=== PATIENT | female | born 1975 | race Caucasian/White ===

== ENCOUNTER → 2018-06-17 06:57 | Outpatient (CLI) | payer OTHER, SELFPAY ==
--- NOTE | 2018-06-17 07:00 | BI_ITS ---
MAMMOGRAPHY - BILATERAL SCREENING REASON FOR EXAM: Female, 42 years old. Routine annual screening examination. PERTINENT HISTORY: Grandmother with breast cancer. TECHNIQUE: Digital bilateral breast delroy (3D mammographic acquisition) in the CC and MLO projections. 2-D mediolateral oblique (MLO) and craniocaudad (CC) views of both breasts were obtained. CAD: Full Field Digital Mammography with Computer Added Detection was performed. COMPARISON: Comparison is made with prior examination dated April 05, 2015 and August 25, 2013. FINDINGS: Breast Composition: The breasts are extremely dense, which lowers the sensitivity of mammography. There are no dominant masses or suspicious calcifications. No other significant abnormalities are identified. There has been no significant change since the prior study. BI/SCREENING MAMM (CAD), BILAT IMPRESSION: Stable bilateral screening mammogram. Yearly follow-up mammogram recommended. (A) ASSESSMENT CATEGORY: BIRADS Category 1: Negative. A letter regarding these results will be sent to the patient by the facility within 30 days. Approximately 10% of breast cancers are not detected by mammography. A normal mammogram should not delay biopsy of a clinically suspicious abnormality. [id number] Electronically Signed: Ted Montemayor MD at 12:30 EDT Tel [phone], Service support ,
== END ==
PROVIDERS: Family Provider Family Medicine; PCP Family Medicine; Visit Provider Obstetrics & Gynecology
DX: Z12.31 Encounter for screening mammogram for malignant neoplasm of breast (principal)
CPT/HCPCS: 77063; 77067

== ENCOUNTER → 2019-06-22 | Outpatient (CLI) | payer OTHER, SELFPAY ==
--- NOTE | 2019-06-22 07:06 | BI_ITS ---
MAMMOGRAPHY - BILATERAL SCREENING REASON FOR EXAM: Female, 43 years old. Routine annual screening examination. PERTINENT HISTORY: Grandmother with breast cancer. Remote left excisional breast biopsy. TECHNIQUE: Digital bilateral breast emily (3D mammographic acquisition) in the CC and MLO projections. 2-D mediolateral oblique (MLO) and craniocaudad (CC) views of both breasts were obtained. CAD: Full Field Digital Mammography with Computer Added Detection was performed. COMPARISON: Comparison is made with prior study dated June 17, 2018 and April 05, 2015. FINDINGS: Breast Composition: The breasts are extremely dense, which lowers the sensitivity of mammography. There are no dominant masses or suspicious calcifications. No other significant abnormalities are identified. There has been no significant change since the prior study. BI/SCREEN MAMM (CAD) W/EMILY BILAT IMPRESSION: Stable bilateral screening mammogram. Yearly follow-up mammogram recommended. (A) ASSESSMENT CATEGORY: BIRADS Category 1: Negative. A letter regarding these results will be sent to the patient by the facility within 30 days. Approximately 10% of breast cancers are not detected by mammography. A normal mammogram should not delay biopsy of a clinically suspicious abnormality. [id number] Electronically Signed: Ted Montemayor, at 10:08 EDT , Service support ,
== END | disposition home or self-care (01) ==
LOC: OPBI 07:04
PROVIDERS: Family Provider Family Medicine; PCP Family Medicine; Referring Provider Obstetrics & Gynecology; Visit Provider Obstetrics & Gynecology
DX: Z12.31 Encounter for screening mammogram for malignant neoplasm of breast (principal)
CPT/HCPCS: 77063; 77067

== ENCOUNTER → 2020-07-11 | Outpatient (CLI) | payer OTHER, SELFPAY ==
--- NOTE | 2020-07-11 07:22 | BI_ITS ---
MAMMOGRAPHY - BILATERAL SCREENING REASON FOR EXAM: Female, 44 years old. Routine annual screening examination. PERTINENT HISTORY: AM HX OF MAT GRANDMOTHER @ AGE 710''S - LT EXC BX 2007 =FIBROADENOMA TECHNIQUE: Digital bilateral breast emily (3D mammographic acquisition) in the CC and MLO projections. 2-D mediolateral oblique (MLO) and craniocaudad (CC) views of both breasts were obtained. CAD: Full Field Digital Mammography with Computer Added Detection was performed. COMPARISON: None. FINDINGS: Breast Composition: The breasts are heterogeneously dense, which may obscure small masses. There is an asymmetric density in the far posterior aspect of the left breast for which further evaluation by ultrasound would be recommended. There are no suspicious calcifications. No other significant abnormalities are identified. BI/SCREEN MAMM (CAD) W/EMILY BILAT IMPRESSION: Further imaging evaluation recommended, as described above. (E) ASSESSMENT CATEGORY: BIRADS Category 0: Incomplete. Need additional imaging evaluation. A letter regarding these results will be sent to the patient by the facility within 30 days. Approximately 10% of breast cancers are not detected by mammography. A normal mammogram should not delay biopsy of a clinically suspicious abnormality. [id number] Electronically Signed: Jacob Manuel, at 16:09 EDT Tel , Service support ,
== END | disposition home or self-care (01) ==
LOC: OPBI 07:21
PROVIDERS: PCP Family Medicine; Referring Provider Obstetrics & Gynecology; Visit Provider Obstetrics & Gynecology
DX: Z12.31 Encounter for screening mammogram for malignant neoplasm of breast (principal)
CPT/HCPCS: 77063; 77067

== ENCOUNTER → 2020-07-14 | Outpatient (CLI) | payer OTHER, SELFPAY ==
--- NOTE | 2020-07-14 12:21 | US_ITS ---
STUDY: ULTRASOUND BREAST - LEFT REASON FOR EXAM: Female, 44 years old. Mammogram abnormality. TECHNIQUE: Axial and longitudinal images of the LEFT breast were performed with a high resolution ultrasound transducer. # OF IMAGES: 10 COMPARISON: None. FINDINGS: LEFT Breast: There is a lesion #1 in the lower canal quadrant. The lesion measures 0.8 x 0.8 x 0.3 cm in size. Clock notation: 9 o''clock position. Distance from nipple: 2 cm. Posterior Enhancement: Yes. Posterior Shadowing: None. Margins: Sharp and smooth. Echogenicity: Anechoic. Compression effect on Shape: No change. US/Breast Limited Unilateral IMPRESSION: Probably benign cyst. ASSESSMENT CATEGORY: BIRADS Category 3: Probably Benign - Short-Interval Follow-up Suggested. A letter regarding these results will be sent to the patient by the facility within 30 days. Electronically Signed: Jacob Manuel, at 16:13 EDT Tel , Service support ,
== END | disposition home or self-care (01) ==
LOC: OPUS 12:18
PROVIDERS: PCP Family Medicine; Referring Provider Obstetrics & Gynecology; Visit Provider Obstetrics & Gynecology
DX: R92.2 Inconclusive mammogram (principal)
CPT/HCPCS: 76642

== ENCOUNTER → 2020-10-13 08:49 | Outpatient (CLI) | payer OTHER, SELFPAY ==
--- NOTE | 2020-10-13 08:55 | BI_ITS ---
MAMMOGRAPHY - UNILATERAL DIAGNOSTIC: LEFT BREAST REASON FOR EXAM: Female, 44 years old. Follow-up of left breast cysts. PERTINENT HISTORY: Grandmother with breast cancer. Remote left excisional breast biopsy for fibroadenoma. TECHNIQUE: Digital unilateral breast delroy (3D mammographic acquisition) in the CC and MLO projections. 2-D mediolateral oblique (MLO) and craniocaudad (CC) views of both breasts were obtained. CAD: Full Field Digital Mammography with Computer Added Detection was performed. COMPARISON: Comparison is made with prior study dated 07/11/2020 and 06/22/2019. FINDINGS: Breast Composition: The breasts are heterogeneously dense, which may obscure small masses. There is a persistent 1.1 cm well-defined nodule in the deep central portion of the left breast. This is not well seen on the cranial caudad view. No other significant abnormalities are identified. BI/DIAG MAMM W/CAD, UNILAT IMPRESSION: 1.1 cm well-defined nodule in the deep central portion of the left breast as described. Correlation with ultrasound is recommended. ASSESSMENT CATEGORY: BIRADS Category 0: Incomplete. Need additional imaging evaluation. A letter regarding these results will be sent to the patient by the facility within 30 days. Approximately 10% of breast cancers are not detected by mammography. A normal mammogram should not delay biopsy of a clinically suspicious abnormality. Electronically Signed: Ted Montemayor, at 10:01 EST , Service support ,
--- NOTE | 2020-10-13 08:55 | US_ITS ---
STUDY: ULTRASOUND BREAST - LEFT REASON FOR EXAM: Female, 44 years old. Abnormal screening mammogram. TECHNIQUE: Axial and longitudinal images of the LEFT breast were performed with a high resolution ultrasound transducer. # OF IMAGES: 28 COMPARISON: Comparison is made with prior mammogram done earlier today as well as prior sonogram of the left breast dated 07/14/2020. FINDINGS: LEFT Breast: There is a 5 mm x 6 mm x 5 mm cyst at the 9 o''clock position the breast at 2 cm from the US/Breast Limited Unilateral IMPRESSION: Stable examination. ASSESSMENT CATEGORY: BIRADS Category 2: Benign. A letter regarding these results will be sent to the patient by the facility within 30 days. Electronically Signed: Ted Montemayor, at 10:15 EST , Service support ,
== END ==
PROVIDERS: PCP Family Medicine; Referring Provider Obstetrics & Gynecology; Visit Provider Obstetrics & Gynecology
DX: N63.0 Unspecified lump in unspecified breast (principal)
CPT/HCPCS: 76642; 77061; 77065; G0279

== ENCOUNTER → 2021-08-09 07:19 | Outpatient (CLI) | payer OTHER, SELFPAY ==
--- NOTE | 2021-08-09 07:21 | BI_ITS ---
MAMMOGRAPHY - BILATERAL SCREENING REASON FOR EXAM: Female, 45 years old. Routine annual screening examination. PERTINENT HISTORY: Grandmother with breast cancer. Remote left excisional breast biopsy. TECHNIQUE: Digital bilateral breast emily (3D mammographic acquisition) in the CC and MLO projections. 2-D mediolateral oblique (MLO) and craniocaudad (CC) views of both breasts were obtained. CAD: Full Field Digital Mammography with Computer Added Detection was performed. COMPARISON: Comparison is made with prior study dated 07/11/2020 and 06/22/2019. FINDINGS: Breast Composition: The breasts are extremely dense, which lowers the sensitivity of mammography. There are no dominant masses or suspicious calcifications. Once again, there is a 1.1 signed a well-defined nodule in the deep central portion of the left breast. This is best seen on the mediolateral oblique view. No other significant abnormalities are identified. There has been no significant change since the prior study. BI/SCRN MAMM (CAD)W/EMILY BILAT IMPRESSION: Stable bilateral screening mammogram. Targeted ultrasound of the left breast nodule is recommended for further evaluation. ASSESSMENT CATEGORY: BIRADS Category 0: Incomplete. Need additional imaging evaluation. A letter regarding these results will be sent to the patient by the facility within 30 days. Approximately 10% of breast cancers are not detected by mammography. A normal mammogram should not delay biopsy of a clinically suspicious abnormality. [id number] Electronically Signed: Ted Montemayor MD at 8:50 EDT , Service support ,
== END ==
PROVIDERS: PCP Family Medicine; Referring Provider Obstetrics & Gynecology; Visit Provider Obstetrics & Gynecology
DX: Z12.31 Encounter for screening mammogram for malignant neoplasm of breast (principal)
CPT/HCPCS: 77063; 77067

== ENCOUNTER → 2021-08-10 12:57 | Outpatient (CLI) | payer OTHER, SELFPAY ==
--- NOTE | 2021-08-10 13:00 | US_ITS ---
STUDY: ULTRASOUND BREAST - LEFT REASON FOR EXAM: Female, 45 years old. Abnormal screening mammogram. TECHNIQUE: Axial and longitudinal images of the LEFT breast were performed with a high resolution ultrasound transducer. # OF IMAGES: 65 COMPARISON: Comparison is made with prior mammogram dated 08/09/2021 and prior sonogram of the left breast dated 10/13/2020. FINDINGS: LEFT Breast: The left breast was examined by ultrasound. Multiple small cysts are seen in the central portion of the breast. The largest cyst measures 5 mm x 5 mm x 6 mm and is located at the 2 o''clock position of breast at 2 cm from the nipple. Stable cyst at the 9 o''clock position of the breast at 2 cm from nipple. It presently measures 4 mm x 4 mm x 3 mm. US/Breast Limited Unilateral IMPRESSION: Multiple small cysts. Routine mammographic follow-up is recommended. ASSESSMENT CATEGORY: BIRADS Category 2: Benign. A letter regarding these results will be sent to the patient by the facility within 30 days. Electronically Signed: Ted Montemayor MD at 15:06 EDT , Service support ,
== END ==
PROVIDERS: PCP Family Medicine; Referring Provider Obstetrics & Gynecology; Visit Provider Obstetrics & Gynecology
DX: N63.42 Unspecified lump in left breast, subareolar (principal)
CPT/HCPCS: 76642

== ENCOUNTER → 2022-11-29 | Outpatient (CLI) | payer OTHER, SELFPAY ==
--- NOTE | 2022-11-29 11:58 | BI_ITS ---
MAMMOGRAPHY - BILATERAL SCREENING REASON FOR EXAM: Female, 47 years old. Routine annual screening examination. PERTINENT HISTORY: Grandmother with breast cancer. History of prior left excisional breast biopsy for fibroadenoma. TECHNIQUE: Digital bilateral breast emily (3D mammographic acquisition) in the CC and MLO projections. 2-D mediolateral oblique (MLO) and craniocaudad (CC) views of both breasts were obtained. CAD: Full Field Digital Mammography with Computer Added Detection was performed. COMPARISON: Comparison is made with prior study dated 08/09/2021 and 10/13/2020. FINDINGS: Breast Composition: The breasts are extremely dense, which lowers the sensitivity of mammography. There are no dominant masses or suspicious calcifications. Stable small benign-appearing bilateral axillary lymph nodes. No other significant abnormalities are identified. There has been no significant change since the prior study. BI/SCRN MAMM (CAD)W/EMILY BILAT IMPRESSION: Stable bilateral screening mammogram. Yearly follow-up mammogram recommended. (A) ASSESSMENT CATEGORY: BIRADS Category 2: Benign. A letter regarding these results will be sent to the patient by the facility within 30 days. Approximately 10% of breast cancers are not detected by mammography. A normal mammogram should not delay biopsy of a clinically suspicious abnormality. [id number] Electronically Signed: Ted Montemayor MD at 12:41 EST ,
== END | disposition home or self-care (01) ==
LOC: OPBI 11:57
PROVIDERS: PCP Family Medicine; Referring Provider Student in an Organized Health Care Education/Training Program; Visit Provider Student in an Organized Health Care Education/Training Program
DX: Z12.31 Encounter for screening mammogram for malignant neoplasm of breast (principal)
CPT/HCPCS: 77063; 77067